=== PATIENT | female | born 1995 | race Native Hawaiian/Other Pacific Islander ===

== ENCOUNTER 2024-05-13 06:58 | Emergency (ER) | payer SELFPAY ==
[~2024-05-13] VITALS: Ht 152.4 cm; Wt 86.4 kg
[2024-05-13] MEDS ORDERED: Morphine 4 MG/ML VIAL IV PRN (07:45)
[2024-05-13] MEDS ORDERED: NS 1,000 ML IV ONE (07:45)
[2024-05-13] MEDS ORDERED: Ondansetron 4 MG/2 ML VIAL IV ONE (07:45)
[2024-05-13 08:08] LABS: BASO % 0.3 % (0.0-2.0); EOS # 0.2 K/mm3 (0.0-0.7); EOS % 2.2 % (0.0-4.0); GRAN # 4.2 K/mm3 (1.4-6.5); GRAN % 61.5 % (42.2-75.2); HEMATOCRIT 32.2 % (37.0-47.0); HEMOGLOBIN 10.9 g/dl (12.5-16.0); LYMPH # 1.9 K/mm3 (1.2-3.4); LYMPH % 27.5 % (20.0-51.0); MEAN CELL VOLUME 94 fl (80.0-100.0); MEAN CORPUSCULAR HEMOGLOBIN 32 pg (27-31); MEAN CORPUSCULAR HGB CONC 34 g/dl (33.0-37.0); MEAN PLATELET VOLUME 10.2 fl (7.4-10.4); MONO # 0.6 K/mm3 (0.1-0.6); MONO % 8.2 % (1.7-9.3); PLATELET COUNT 254 K/mm3 (130-400); RED BLOOD COUNT 3.44 M/mm3 (4.10-5.30); REDCELL DISTRIBUTION WIDTH-CV 11.6 % (11.5-14.5)
[2024-05-13 08:30] LABS: ALBUMIN 3.5 g/dL (3.5-5.0); BILIRUBIN,TOTAL 0.5 mg/dL (0.2-1.2); CALCIUM 8.5 mg/dL (8.4-10.2); CREATININE, serum 0.81 mg/dL (0.57-1.11); POTASSIUM 3.5 mEq/L (3.5-4.5); TOTAL PROTEIN 6.8 g/dl (6.2-8.1)
[2024-05-13] MEDS ORDERED: ZOFRAN ODT4 MG PO (09:44)
[2024-05-13] MEDS ORDERED: PERCOCET 325 MG1 TA2 PO (09:44)
[2024-05-13] MEDS ORDERED: Morphine 4 MG/ML VIAL IV ONE (09:45)
[2024-05-13 10:00] VITALS: BP 102/71; PULSE 55; TEMP 98.3
== END 2024-05-13 10:12 | disposition home or self-care (01) ==
LOC: COL.ER 06:58
PROVIDERS: Personal Emergency Response Attendant
DX: K80.50 Calculus of bile duct without cholangitis or cholecystitis without obstruction (principal); F17.290 Nicotine dependence, other tobacco product, uncomplicated
CPT/HCPCS: J2270; J2405; J7030